=== PATIENT | male | born 1970 | race Caucasian/White ===

== ENCOUNTER 2016-10-27 14:55 | Emergency (ER) | payer BC ==
[2016-10-27 15:08] VITALS: BP 149/94; PULSE 86; O2SAT 95
[2016-10-27] MEDS ORDERED: XYLOCAINE 2% HCL 20 ML MDV ONE (15:09)
[2016-10-27] MEDS ORDERED: Xylocaine-Mpf 2% 5 Ml Vial IJ ONE (15:28)
--- NOTE | 2016-10-27 15:36 | ERPHSYRPT ---
- History of Present Illness Time Seen by Provider: 10/27/16 15:20 Source: patient Exam Limitations: clinical condition Patient Subjective Stated Complaint: fish hook in 2nd digit right hand at 1130 today Triage Nursing Assessment: ambulated to room per self. large fish hook noted to 2nd digit right hand. is at base of nailbed. small amt bleeding noted. Physician History: PATIENT COMPLAINS OF FISH HOOK EMBEDDED INTO RIGHT INDEX FINGER BELOW FINGER NAIL. PATIENT COMPLAINS OF PAIN DISCOMFORT. DENIES NUMBNESS, TINGLING IN FINGER TIP. Occurred: just prior to arrival Method of Injury: incised Quality: constant Severity of Pain-Max: moderate Severity of Pain-Current: moderate Extremities Pain Location: 2nd finger: right Modifying Factors: Improves With: movement Associated Symptoms: none Allergies/Adverse Reactions: No Known Drug Allergies Allergy (Unverified 10/27/16 15:01) Hx Tetanus, Diphtheria Vaccination/Date Given: No Hx Influenza Vaccination/Date Given: No Hx Pneumococcal Vaccination/Date Given: No - Review of Systems Constitutional: No Symptoms Musculoskeletal: Injury - Past Medical History Pertinent Past Medical History: No - Past Surgical History Past Surgical History: No - Social History Smoking Status: Current every day smoker How long have you smoked: 15 Exposure to second hand smoke: No Drug Use: none Patient Lives Alone: No - Nursing Vital Signs Nursing Vital Signs: Initial Vital Signs Temperature 97.9 F Temperature Source Oral Pulse Rate 86 Respiratory Rate 16 Blood Pressure [Left Arm] 149/94 Pain Intensity 2 - Physical Exam General Appearance: no apparent distress, alert Hand Exam: soft tissue tenderness (THERE IS A FOREIGN BODY METAL HOOK EMBEDDED INTO DISTAL PHALANGX DORSUM PROXIMAL TO NAIL FOLD) SpO2 Interpretation: normal SpO2: 95 Oxygen Delivery: Room Air Ordered Tests: Medication Summary Discontinued Medications Generic Name Dose Route Start Last Admin Trade Name Freq PRN Reason Stop Dose Admin Lidocaine HCl Confirm 10/27/16 15:09 Xylocaine 2% Hcl 20 Ml Mdv Administered 10/27/16 15:10 Dose 5 ml .[email or web address] - Progress Progress: improved Progress Note: 10/27/16 15:38 2% LIDOCAINE DIGITAL BLOCK GIVEN HOOK PULLED THROUGH, FINGER SOAKED INTO HIBACLENS SOLUTION 10/27/16 15:39 PATIENT HE WILL OBTAIN A TETNUS TODAY AT WORK Counseled pt/family regarding: diagnosis, need for follow-up - Departure Time of Disposition: 15:53 Departure Disposition: Home Clinical Impression: REMOVAL FISH HOOK RIGHT INDEX FINGER Condition: Stable Critical Care Time: No Additional Instructions: TYLENOL OR MOTRIN NEEDED FOR PAIN. ANTIBIOTIC AUGMENTIN 875MG TWICE DAILY FOR 10 DAYS. WATCH FOR SIGNS OF INFECTION, REDNESS, SWELLING OR DRAINAGE. Prescriptions: Amox Tr/Potass Clav. 875 mg [Augmentin 875-125 Tablet] 875 mg PO BID #20 tablet
== END 2016-10-27 16:00 | disposition home or self-care (01) ==
LOC: ED 14:55
DX: S61.230A Puncture wound without foreign body of right index finger without damage to nail, initial encounter (principal); W45.8XXA Other foreign body or object entering through skin, initial encounter
CPT/HCPCS: 99283